=== PATIENT | female | born 1970 | race Caucasian/White ===

== ENCOUNTER 2020-11-12 14:18 | Outpatient (REF) | payer BC, SELFPAY ==
--- NOTE | 2020-11-12 13:30 | PAPFT_PTH ---
PATIENT: Lily Hoffman LOC: [facility] U#:[id number] AGE/SX: 49/F ROOM: RE11/12/[address]: Savita Perrin MD, DC : 1970 BED: DIS: 11/12/2020 SPEC #: [id number] RECD: 11/13/20 13:03 STATUS: MELISSA REDesiree #: [id number] GRAEME: 11/12/20 13:[address]: Savita Perrin DEPT: [facility] Cytology RECD BY: Treva Smith Tissues: 1 - CX/ENDOCX FOR PAP SMEARS Procedures: PAP THIN PREP/[facility] Screening Comments: [id number]
== END 2020-11-12 14:19 | disposition home or self-care (01) ==
LOC: LBN 14:18
PROVIDERS: PCP Family Medicine; Visit Provider Family Medicine
DX: Z12.4 Encounter for screening for malignant neoplasm of cervix (principal); R87.613 High grade squamous intraepithelial lesion on cytologic smear of cervix (HGSIL)
CPT/HCPCS: 88142

== ENCOUNTER 2020-12-05 12:05 | Outpatient (REF) | payer BC, SELFPAY ==
--- NOTE | 2020-12-05 11:30 | ENDO_PTH ---
PATIENT: Lily Hoffman LOC: [facility] U#:[id number] AGE/SX: 50/F ROOM: RE12/05/[address]: Lisa Baeza : 1970 BED: DIS: 12/05/2020 SPEC #: [id number] RECD: 12/05/20 12:49 STATUS: MELISSA REDesiree #: [id number] GRAEME: 12/05/20 11:[address]: Lisa Baeza DEPT: Surgical Specimen RECD BY: Treva Smith ENTERED: 12/05/20 12:50 SP TYPE: Endo OTHR DR: Savita Perrin MD, DC Tissues: 1 - ENDOCERVICAL BX/CURRETTE 2 - CERVICAL BIOPSY Procedures: GROSS AND MICRO LEVEL 4 P16 IPEX Comments: [id number]
== END 2020-12-05 12:06 | disposition home or self-care (01) ==
LOC: LBN 12:05
PROVIDERS: PCP Family Medicine; Visit Provider Obstetrics & Gynecology Gynecology
DX: N87.1 Moderate cervical dysplasia (principal); R87.613 High grade squamous intraepithelial lesion on cytologic smear of cervix (HGSIL)
CPT/HCPCS: 88305; 88342

== ENCOUNTER 2021-12-09 12:15 | Outpatient (REF) | payer SELFPAY | END 2021-12-09 12:16 | disposition home or self-care (01) | LOC: LBN 12:15 | PROVIDERS: Visit Provider Family Medicine ==

== ENCOUNTER 2021-12-09 13:10 | Outpatient (REF) | payer BC, SELFPAY ==
--- NOTE | 2021-12-09 11:00 | PAPFT_PTH ---
PATIENT: Lily Hoffman LOC: [facility] U#:[id number] AGE/SX: 51/F ROOM: RE12/09/[address]: Savita Perrin MD, DC : 1970 BED: DIS: 12/09/2021 SPEC #: [id number] RECD: 12/09/21 18:02 STATUS: MELISSA REDesiree #: [id number] GRAEME: 12/09/21 11:[address]: Savita Perrin DEPT: [facility] Cytology RECD BY: Treva Smith Tissues: 1 - CX/ENDOCX FOR PAP SMEARS Procedures: PAP THIN PREP/[facility] Screening HPV DNA PROBE Comments: [id number]
[2021-12-09 19:58] LABS: TSH (W/Ref FT4) 0.38 uIU/mL (0.36-3.74)
[2021-12-10 17:52] LABS: LH 15.7 mIU/mL (See Note)
== END 2021-12-09 13:11 | disposition home or self-care (01) ==
LOC: LBN 13:10
PROVIDERS: PCP Family Medicine; Visit Provider Family Medicine
DX: N85.2 Hypertrophy of uterus (principal); Z00.00 Encounter for general adult medical examination without abnormal findings; Z12.4 Encounter for screening for malignant neoplasm of cervix; Z11.51 Encounter for screening for human papillomavirus (HPV)
CPT/HCPCS: 88142; 83001; 83002; 84443; 87624

== ENCOUNTER → 2024-02-11 03:33 | Outpatient (CLI) | payer BC, SELFPAY ==
--- NOTE | 2024-02-11 08:30 | DI.MAMMO_ITS ---
Exam(s) MAMMO SCREENING EXAM: MAMMO SCREENING CLINICAL HISTORY: screening,Z12.39. TECHNIQUE: Bilateral full field digital CC and MLO mammographic images were obtained with 3D tomosyn thesis and utilizing computer aided detection (CAD). COMPARISON: None. This is a baseline mammogram on this 53-year-old. FINDINGS: Fibroglandular tissue is moderately dense, this somewhat decreasing the sensitivity of the mammogram for finding hidden underlying lesions. There are no obvious spiculated masses nor malignant appearing microcalcification groups. Few benign-appearing microcalcifications are noted in the right breast. There is no significant architectural distortion nor skin thickening-retraction. IMPRESSION: No radiographic evidence of malignancy. BI-RADS Category 2 - Benign Findings Breast Density - Category C - Heterogeneously dense Breast density Category C or D implies that the patient has dense breast tissue. Dense breast tissue can make it harder to find cancer on a mammogram. Dense breast tissue is also associated with an incr eased risk of breast cancer. This information about the result of the mammogram report was provided to the patient to raise their awareness. Use this report when you speak with the patient about their risks for breast cancer, which includes their family history. At that time, you may recommend additional screening tests (Ultrasoun d or MRI) as these tests may add significant information. A negative radiographic report should not delay biopsy if a dominant or clinically suspicious mass is present. Up to ten percent of cancers are not identified on mammography. A negative report may reinforce clinical impression. Adenosis and dense breasts may obscure an underlying neoplasm. False positive reports average 6 to 10%. Patient will receive a letter notifying them of these results.
== END ==
PROVIDERS: PCP Family Medicine; Visit Provider Family Medicine
DX: Z12.31 Encounter for screening mammogram for malignant neoplasm of breast (principal); R92.323 Mammographic fibroglandular density, bilateral breasts
CPT/HCPCS: 77063; 77067

== ENCOUNTER 2025-02-23 15:44 | Outpatient (REF) | payer SELFPAY ==
--- NOTE | 2025-02-23 11:00 | PAPFT_PTH ---
PATIENT: Lily Hoffman LOC: [facility] U#:[id number] AGE/SX: 54/F ROOM: RE02/23/[address]: Savita Perrin MD, DC : 1970 BED: DIS: 02/23/2025 SPEC #: [id number] RECD: 02/24/25 13:00 STATUS: MELISSA REDesiree #: [id number] GRAEME: 02/23/25 11:[address]: Savita Perrin DEPT: [facility] Cytology RECD BY: Treva Smith Tissues: 1 - CX/ENDOCX FOR PAP SMEARS Procedures: PAP THIN PREP/[facility] Screening HPV DNA PROBE Comments: [id number] (HPV 16 & 18/45)
== END 2025-02-23 15:45 | disposition home or self-care (01) ==
LOC: LBN 15:44
PROVIDERS: PCP Family Medicine; Visit Provider Family Medicine
DX: Z12.4 Encounter for screening for malignant neoplasm of cervix (principal)
CPT/HCPCS: 88142; 87624